=== PATIENT | male | born 1965 | race Caucasian/White ===

== ENCOUNTER 2021-04-27 10:45 | Day surgery (SDC) | payer MEDICAID ==
[~2021-04-27] VITALS: Ht 172.7 cm; Wt 193.2 kg
[~2021-04-27 10:45] MED LIST: SODIUM CHLORIDE 0.9% 1,000 ML ONE
[2021-04-27] MEDS ORDERED: PROPOFOL 1% 20 ML VIAL IVP ONE (10:46)
[2021-04-27] MEDS ORDERED: SODIUM CHLORIDE 0.9% 1,000 ML IV ONE (11:00)
[2021-04-27 12:02] LABS: COVID AG,FIA SOURCE NASOPHARYNGEAL
== END 2021-04-27 14:56 | disposition home or self-care (01) ==
LOC: SURGERY 10:45
PROVIDERS: ATTEND Internal Medicine Gastroenterology
DX: K62.5 Hemorrhage of anus and rectum (principal); K57.30 Diverticulosis of large intestine without perforation or abscess without bleeding; K64.8 Other hemorrhoids; K64.4 Residual hemorrhoidal skin tags; I10 Essential (primary) hypertension; Z98.890 Other specified postprocedural states; Z79.899 Other long term (current) drug therapy
CPT/HCPCS: 45378; 87426; C9803; J2704; J7030